=== PATIENT | female | born 1995 | race Caucasian/White ===

== ENCOUNTER 2021-07-07 23:26 | Emergency (ER) | payer OTHER ==
[~2021-07-07 23:26] MED LIST: FEOSOL325 MG PO; PRENATAL TABLE1 EAC1 PO
[2021-07-08 00:35] LABS: HEMOGLOBIN 11.1 gm/dl (12.3-15.3); RED BLOOD COUNT 4.34 M/UL (4.00-5.10); WHITE BLOOD COUNT 7.8 K/UL (4.5-11.0)
[2021-07-08 00:53] LABS: BUN/CREATININE RATIO 16 (0-10)
[2021-07-08] MEDS ORDERED: ZOFRAN ODT 4 MG4 MG SL (03:15)
[2021-07-08] MEDS ORDERED: MACROBID 100 M100 MG PO (03:15)
== END 2021-07-08 03:30 | disposition home or self-care (01) ==
LOC: ER1 23:26
PROVIDERS: Physician Assistant
DX: N39.0 Urinary tract infection, site not specified (principal); F17.210 Nicotine dependence, cigarettes, uncomplicated
CPT/HCPCS: 80053; 81001; 83690; 84703; 85025; 87077; 87086; 87186; 99284

== ENCOUNTER → 2021-08-03 | Emergency (ER) | payer OTHER ==
[~2021-08-03] MED LIST changes: +MACROBID 100 M100 MG PO; +ZOFRAN ODT 4 MG4 MG SL
[2021-08-03 18:51] LABS: HEMOGLOBIN 12.5 gm/dl (12.3-15.3); RED BLOOD COUNT 4.69 M/UL (4.00-5.10); WHITE BLOOD COUNT 7.9 K/UL (4.5-11.0)
[2021-08-03 19:15] LABS: BUN/CREATININE RATIO 18 (0-10)
== END | disposition home or self-care (01) ==
LOC: ER1 18:17
PROVIDERS: Physician Assistant
DX: O20.8 Other hemorrhage in early pregnancy (principal); O99.331 Smoking (tobacco) complicating pregnancy, first trimester; F17.200 Nicotine dependence, unspecified, uncomplicated; O99.511 Diseases of the respiratory system complicating pregnancy, first trimester; J45.909 Unspecified asthma, uncomplicated; Z3A.01 Less than 8 weeks gestation of pregnancy
CPT/HCPCS: 76817; 80053; 81001; 84702; 85025; 86900; 86901; 99284

== ENCOUNTER 2021-09-15 19:34 | Emergency (ER) | payer OTHER ==
[2021-09-15 20:41] LABS: HEMOGLOBIN 12.2 gm/dl (12.3-15.3); RED BLOOD COUNT 4.29 M/UL (4.00-5.10)
[2021-09-15 21:02] LABS: BUN/CREATININE RATIO 16 (0-10)
[2021-09-15] MEDS ORDERED: AMOXICILLIN500 MG PO (22:27)
== END 2021-09-15 23:00 | disposition home or self-care (01) ==
LOC: ER1 19:34
PROVIDERS: Family Medicine
DX: O23.41 Unspecified infection of urinary tract in pregnancy, first trimester (principal); N39.0 Urinary tract infection, site not specified; O99.331 Smoking (tobacco) complicating pregnancy, first trimester; Z37.9 Outcome of delivery, unspecified; F17.210 Nicotine dependence, cigarettes, uncomplicated
CPT/HCPCS: 80053; 81001; 83690; 84702; 85025; 87086; 99284

== ENCOUNTER 2022-02-04 20:04 | Outpatient (CLI) | payer OTHER ==
[~2022-02-04 20:04] MED LIST changes: +AMOXICILLIN500 MG PO
== END 2022-02-05 00:52 | disposition home or self-care (01) ==
LOC: GENOP 20:04
DX: O21.9 Vomiting of pregnancy, unspecified (principal); O99.891 Other specified diseases and conditions complicating pregnancy; R12 Heartburn; O99.333 Smoking (tobacco) complicating pregnancy, third trimester; F17.210 Nicotine dependence, cigarettes, uncomplicated; Z91.048 Other nonmedicinal substance allergy status; Z3A.32 32 weeks gestation of pregnancy
CPT/HCPCS: 59025; 81001; 82731; 96360; 96374; C9113; J0690; J2405

== ENCOUNTER 2022-02-15 11:38 | Outpatient (CLI) | payer OTHER ==
[2022-02-15 12:24] LABS: HEMOGLOBIN 9.1 gm/dl (12.3-15.3); RED BLOOD COUNT 3.79 M/UL (4.00-5.10); WHITE BLOOD COUNT 10.4 K/UL (4.5-11.0)
[2022-02-15 12:44] LABS: BUN/CREATININE RATIO 10 (0-10)
[2022-02-15] MEDS ORDERED: LABETALOL HCL200 MG PO (13:26)
== END 2022-02-15 14:02 | disposition home or self-care (01) ==
LOC: GENOP 11:38
PROVIDERS: Internal Medicine Pulmonary Disease
DX: O14.13 Severe pre-eclampsia, third trimester (principal); O30.043 Twin pregnancy, dichorionic/diamniotic, third trimester; O99.513 Diseases of the respiratory system complicating pregnancy, third trimester; J45.909 Unspecified asthma, uncomplicated; Z3A.34 34 weeks gestation of pregnancy
CPT/HCPCS: 80053; 82570; 84156; 85025; J7120

== ENCOUNTER 2022-02-22 11:40 | Outpatient (CLI) | payer OTHER ==
[~2022-02-22 11:40] MED LIST changes: +LABETALOL HCL200 MG PO
[2022-02-22 12:30] LABS: RED BLOOD COUNT 3.82 M/UL (4.00-5.10)
[2022-02-22 12:45] LABS: BUN/CREATININE RATIO 12 (0-10)
== END 2022-02-22 14:57 | disposition other institution (70) ==
LOC: GENOP 11:40
PROVIDERS: Obstetrics & Gynecology
DX: O14.13 Severe pre-eclampsia, third trimester (principal); O30.043 Twin pregnancy, dichorionic/diamniotic, third trimester; O99.333 Smoking (tobacco) complicating pregnancy, third trimester; F17.210 Nicotine dependence, cigarettes, uncomplicated; Z3A.35 35 weeks gestation of pregnancy; Z20.822 Contact with and (suspected) exposure to COVID-19
CPT/HCPCS: 80053; 81001; 83615; 84550; 85025; G0463; U0002

== ENCOUNTER 2022-04-20 21:39 | Emergency (ER) | payer OTHER | END 2022-04-20 23:45 | disposition home or self-care (01) | LOC: ER1 21:39 | DX: J02.0 Streptococcal pharyngitis (principal); Z20.822 Contact with and (suspected) exposure to COVID-19 | CPT/HCPCS: 0240U; 71046; 87081; 87880; 96372; 99283; J0561 ==